=== PATIENT | female | born 1970 | race Caucasian/White ===

== ENCOUNTER 2018-02-14 21:13 | Inpatient (IN) | payer SELFPAY ==
[~2018-02-14] VITALS: Ht 160 cm; Wt 57.3 kg
[2018-02-14] MEDS ORDERED: ASPIRIN 81 MG CHEW TAB PO ONE ×2 (21:30)
[2018-02-14 21:40] LABS: BASOPHILS # (AUTO) 0.1 (0.0-0.1); BASOPHILS % 0.4 % (0.0-1.0); EOSINOPHILS % 0.1 % (0.0-6.0); HEMATOCRIT 43.8 % (34.2-44.1); HEMOGLOBIN 15.1 g/dL (12.0-16.0); LYMPHOCYTES % 4.5 % (18.0-39.1); MEAN CORPUSCULAR HEMOGLOBIN 31.8 pg (28-32); MEAN CORPUSCULAR HGB CONC 34.5 g/dL (31-35); MEAN CORPUSCULAR VOLUME 92.2 fL (81-99); MONOCYTES # (AUTO) 0.4 (0.2-0.8); NEUTROPHILS # (AUTO) 20.3 (2.1-6.9); NEUTROPHILS % 92.3 % (38.7-80.0); PLATELET COUNT 326 x10e3/uL (140-360); RED BLOOD COUNT 4.75 x10e6/uL (3.6-5.1); RED CELL DISTRIBUTION WIDTH 14.6 % (11.7-14.4)
[2018-02-14 21:45] LABS: INR 0.91; PROTHROMBIN TIME 11.5 seconds (11.9-14.5)
[2018-02-14] MEDS ORDERED: LIDOCAINE HCL 2% LOCAL 20 ML VIAL ONE (21:46)
[2018-02-14] MEDS ORDERED: IOPAMIDOL 370 MG/ML 200 ML INFUS..BTL INJ ONE (21:47)
[2018-02-14] MEDS ORDERED: HEPARIN SOD/SOD CHLORIDE 2,000 ML ONE (21:47)
[2018-02-14] MEDS ORDERED: MIDAZOLAM HCL 2 MG/2 ML VIAL ONE (21:50)
[2018-02-14] MEDS ORDERED: NITROGLYCERIN/D5W 200 MCG/ML 0 ML ONE (21:50)
[2018-02-14] MEDS ORDERED: FENTANYL CITRATE/PF 100MCG/2 ML INJ ONE (21:50)
[2018-02-14 21:51] LABS: PARTIAL THROMBOPLASTIN TIME 21.6 seconds (23.8-35.5)
[2018-02-14] MEDS ORDERED: BIVALIRUDIN 250 MG/VIAL IV ONE (21:53)
[2018-02-14] MEDS ORDERED: SODIUM CHLORIDE 0.9% 50ML 50 ML ONE (21:53)
[2018-02-14 21:55] LABS: ALANINE AMINOTRANSFERASE 28 IU/L (0-55); ALBUMIN 4.7 g/dL (3.5-5.0); ALBUMIN/GLOBULIN RATIO 1.1 (0.8-2.0); ALKALINE PHOSPHATASE 67 IU/L (40-150); ANION GAP 19.8 mmol/L (8-16); BLOOD UREA NITROGEN 12 mg/dL (7-26); BUN/CREATININE RATIO 15 (6-25); CARBON DIOXIDE 17 mmol/L (22-29); CHLORIDE 100 mmol/L (98-107); CREATINE KINASE 123 IU/L (29-168); CREATININE, SERUM 0.81 mg/dL (0.57-1.11); EST GLOMERULAR FILTRATION RATE > 60 ML/MIN (60-); GLUCOSE 223 mg/dL (74-118); POTASSIUM 3.8 mmol/L (3.5-5.1); SODIUM 133 mmol/L (136-145)
[2018-02-14] MEDS ORDERED: SODIUM CHLORIDE 0.9% 1000ML 1,000 ML ONE (21:57)
[2018-02-14] MEDS ORDERED: ATROPINE SULFATE 0.1 MG/ML 10ML SYR ONE (22:14)
--- NOTE | 2018-02-14 22:24 | Diagnostic Imaging Report ---
EXAMINATION: CHEST SINGLE (PORTABLE) INDICATION: Chest pain COMPARISON: None FINDINGS: TUBES and LINES: None. LUNGS: Lungs are not well inflated. There are bibasilar atelectasis. View right lung base interlobular septi thickening opacities. There is mild prominence of the central pulmonary vasculature, consistent with pulmonary venous congestion. PLEURA: No pleural effusion or pneumothorax. HEART AND MEDIASTINUM: Cardiac size is mildly enlarged, most likely related to. BONES AND SOFT TISSUES: No acute osseous lesion. Soft tissues are unremarkable. UPPER ABDOMEN: No free air under the diaphragm. IMPRESSION: Central basilar congestion with early findings of pulmonary edema Signed by: Dr. Panda aLm M.D. on 02/14/2018 10:20 PM
[2018-02-14] MEDS ORDERED: NOREPINEPHRINE 8 MG/D5W 250 ML 250 ML ONE (22:26)
[2018-02-14] MEDS ORDERED: ASPIRIN 325 MG TAB ONE (22:39)
[2018-02-14] MEDS ORDERED: CLOPIDOGREL BISULFATE 75 MG TAB ONE (22:39)
[2018-02-14] MEDS ORDERED: EPTIFIBATIDE 10 ML ONE (22:43)
[2018-02-14] MEDS ORDERED: EPTIFIBATIDE 100 ML ONE (22:43)
[2018-02-14 23:26] VITALS: BP 136/89
[2018-02-14 23:29] LABS: CHOL/HDL RATIO 4.9 (3.0-3.6); MAGNESIUM 2.2 MG/DL (1.3-2.1)
[2018-02-14 23:30] VITALS: BP 143/87
[2018-02-14 23:45] VITALS: BP 135/90
[2018-02-14 23:49] LABS: THYROID STIMULATING HORMONE 1.484 uIU/mL (0.350-4.940)
[2018-02-15] VITALS (66 sets, daily range): BP systolic 102–173; BP diastolic 57–108
[2018-02-15] MEDS ORDERED: ATROPINE SULFATE 0.1 MG/ML 10ML SYR ONE (01:32)
--- NOTE | 2018-02-15 04:17 | Operative Report ---
DATE OF PROCEDURE: February 14, 2018 PROCEDURES PERFORMED: 1. Left heart catheterization. 2. Selective coronary angiogram. 3. Stent placement in the right coronary artery. INDICATIONS: Acute inferior wall myocardial infarction. ANESTHESIA: Two percent lidocaine for local anesthesia. BLOOD LOSS: 10 mL. DESCRIPTION OF PROCEDURE: After informed consent, patient was brought to the cardiac catheterization laboratory and placed on the table. Both groins were painted and draped in a sterile fashion. Lidocaine was injected in the right groin for local anesthesia. The right femoral artery was accessed by Seldinger technique and a 6-Dominican sheath was placed in the right femoral artery. The left main artery was cannulated using a JL4, 5-Dominican catheter. Coronary angiogram was performed. The images were obtained in multiple views. The right coronary artery was cannulated using a 3DRC 5-Dominican catheter. Coronary angiogram was performed. The images were obtained. Reviewing the images, it was decided to intervene on the 95% mid RCA and 100% distal RCA lesion. The left main was cannulated using an AL75, 6-Dominican guide. A Runthrough wire was manipulated and placed in the distal right coronary artery. A 2.5 x 8 mm Emerge balloon was advanced over the wire and the distal 100% lesion was dilated at 8 to 10 atmospheres for about 15 seconds. Multiple dilatations were performed. Subsequently, the same balloon was pulled back and the mid RCA lesion was dilated at 10 atmospheres for about 15 to 20 seconds. Multiple dilatations were performed sequentially on the long lesion. There was a non-flow limiting dissection in the mid RCA. Subsequently, a 2.75 x 32 mm Synergy drug-eluting stent was deployed across the mid lesion at 12 atmospheres for about 20 seconds. The Runthrough wire was initially placed in the posterior descending artery. Initially, plan was to double wire the posterolateral branch and the posterior descending artery. However, the Prowater wire would get struck in the struts. So, the wire was removed and the same Runthrough wire was manipulated and placed in the distal posterolateral branch. The posterolateral branch had lesions in its proximal and distal segments. Distally, it would taper off into a very narrow vessel. Subsequently, a 2.5 x 20 mm Synergy drug-eluting stent was deployed across the distal RCA and posterolateral branch. It was deployed at 11 atmospheres for about 20 seconds. This was performed under constant fluoroscopy guidance. Excellent results were obtained and TAMRA-3 flow was noted. Patient was given aspirin, Plavix, Angiomax and Integrilin during the procedure. Patient tolerated the procedure without any complications. REPORT: LEFT MAIN: Normal caliber with luminal irregularities. LEFT ANTERIOR DESCENDING: Normal caliber with 20% proximal lesion followed by another 20% proximal to mid lesion. LEFT CIRCUMFLEX: Normal caliber and 60% to 70% mid lesion. RIGHT CORONARY ARTERY: Is a dominant vessel, has a wall 95% mid lesion and is totally occluded in its distal segment. Following intervention, distally the right coronary artery branches and tapers off into less than a millimeter-sized vessel and has diffuse disease. The distal posterior descending artery also tapers off into less than a millimeter vessel and has diffuse disease. There was TAMRA-3 and 0% residual stenosis at the mid lesion, less than 10% residual stenosis in the distal lesion. We will continue with dual antiplatelet agents, statins, beta blockers. The patient has also been counseled on tobacco cessation. Job#: [id number]
--- NOTE | 2018-02-15 06:24 | Diagnostic Imaging Report ---
EXAMINATION: CHEST SINGLE (PORTABLE) INDICATION: ST elevation [place] COMPARISON: 02/14/2018 FINDINGS: TUBES and LINES: None. LUNGS: Lungs are not well inflated. Lungs are clear. There is mild prominence of the central pulmonary vasculature, consistent with pulmonary venous congestion. PLEURA: No pleural effusion or pneumothorax. HEART AND MEDIASTINUM: The cardiomediastinal silhouette is unremarkable. BONES AND SOFT TISSUES: No acute osseous lesion. Soft tissues are unremarkable. UPPER ABDOMEN: No free air under the diaphragm. IMPRESSION: No acute thoracic abnormality. Signed by: Dr. Panda Lam M.D. on 02/15/2018 6:20 AM
[2018-02-15 06:29] LABS: BASOPHILS % 0.2 % (0.0-1.0); HEMATOCRIT 35.6 % (34.2-44.1); HEMOGLOBIN 12.4 g/dL (12.0-16.0); LYMPHOCYTES # (AUTO) 0.9 (1.0-3.2); LYMPHOCYTES % 4.9 % (18.0-39.1); MEAN CORPUSCULAR HEMOGLOBIN 31.8 pg (28-32); MEAN CORPUSCULAR HGB CONC 34.8 g/dL (31-35); MEAN CORPUSCULAR VOLUME 91.3 fL (81-99); MONOCYTES # (AUTO) 0.9 (0.2-0.8); MONOCYTES % 4.9 % (4.4-11.3); NEUTROPHILS # (AUTO) 16.8 (2.1-6.9); NEUTROPHILS % 89.6 % (38.7-80.0); PLATELET COUNT 332 x10e3/uL (140-360); RED CELL DISTRIBUTION WIDTH 14.3 % (11.7-14.4)
[2018-02-15 06:48] LABS: ALANINE AMINOTRANSFERASE 90 IU/L (0-55); ALBUMIN 3.5 g/dL (3.5-5.0); ALBUMIN/GLOBULIN RATIO 1.3 (0.8-2.0); ALKALINE PHOSPHATASE 47 IU/L (40-150); ANION GAP 12.9 mmol/L (8-16); BLOOD UREA NITROGEN 10 mg/dL (7-26); BUN/CREATININE RATIO 17 (6-25); CALCIUM 8.4 mg/dL (8.4-10.2); CARBON DIOXIDE 19 mmol/L (22-29); CHLORIDE 106 mmol/L (98-107); CREATININE, SERUM 0.59 mg/dL (0.57-1.11); EST GLOMERULAR FILTRATION RATE > 60 ML/MIN (60-); GLUCOSE 163 mg/dL (74-118); POTASSIUM 3.9 mmol/L (3.5-5.1); SODIUM 134 mmol/L (136-145)
[2018-02-15 07:00] LABS: CHOL/HDL RATIO 4.7 (3.0-3.6)
[2018-02-15] MEDS: ASPIRIN 325 MG TAB PO SCH (07:49)
[2018-02-15] MEDS: ATORVASTATIN 20 MG TAB PO SCH (07:53)
[2018-02-15] MEDS: CLOPIDOGREL BISULFATE 75 MG TAB PO SCH (07:53)
[2018-02-15] MEDS ORDERED: METFORMIN HCL500 MG PO (07:54)
[2018-02-15] MEDS ORDERED: LOSARTAN POTAS100 MG PO (07:54)
[2018-02-15 08:10] LABS: CREATINE KINASE MB 519.4 ng/mL (0-5.0)
[2018-02-15] MEDS: METOPROLOL TARTRATE 25 MG TAB PO SCH ×3 (09:00→17:00)
[2018-02-15 09:31] LABS: B-TYPE NATRIURETIC PEPTIDE2 135.1 pg/mL (0-100)
[2018-02-15] MEDS ORDERED: DEXTROSE 50% SYRINGE 50 ML IV PRN (11:15)
[2018-02-15] MEDS ORDERED: MORPHINE SULFATE 2 MG/ML SYR IV PRN (11:15)
[2018-02-15] MEDS ORDERED: NITROGLYCERIN 2% OINT 1 GM PKT ONE (11:53)
[2018-02-15] MEDS: NITROGLYCERIN 2% OINT 1 GM PKT TOP SCH ×3 (11:55→23:41)
[2018-02-15] MEDS: INSULIN LISPRO 100 UNIT/1 ML 3ML VIAL SQ SCH ×3 (12:04→20:52)
--- NOTE | 2018-02-15 15:03 | Consultation ---
DATE OF CONSULTATION: February 14, 2018 REQUESTING PHYSICIAN: Dr. Harden. REASON FOR CONSULTATION: Inferior wall myocardial infarction. HISTORY OF PRESENT ILLNESS: Ms. Zhang is a 48-year-old lady with past medical history as listed below, reportedly started developing chest pain at about 5 p.m. this evening. She thought it would go away, but continued to persist, was retrosternal, nonradiating, was a little short of breath, a pressure-like pain. It continued to persist and so she decided to come to the emergency room. On her EKG, patient was noted to have ST elevation in the inferior leads, so is called about an inferior wall NC. Patient states that she had a mild heart attack several years back. Apparently underwent a cardiac catheterization and was told all was okay. She denies any abdominal pain, vomiting or diarrhea. No bleeding problems. She smokes on a daily basis. Her father apparently had NC in his 40s. REVIEW OF SYMPTOMS: CONSTITUTIONAL: Has some fatigue and weakness. HEENT: No headache, blurry vision, seizures, syncope. CARDIOVASCULAR: Chest pain. Some dyspnea. No orthopnea or PND. RESPIRATORY: No cough, fever or expectoration. GI: No abdominal pain, vomiting, diarrhea. : No dysuria, frequency, incontinence. ALLERGIES: NO KNOWN DRUG ALLERGIES. MEDICATIONS: See list. PAST MEDICAL HISTORY: 1. History of hypertension. 2. History of diabetes mellitus. SOCIAL HISTORY: Patient smokes a pack a day. Patient apparently has been smoking for more than 30 years. Does not drink alcohol. FAMILY HISTORY: Father had NC in his 40s. PHYSICAL EXAMINATION: GENERAL: A small built lady, alert, oriented. Appears a little anxious. VITALS: Heart rate is 78, blood pressure 147/74. HEENT: Atraumatic. NECK: No JVD, bruit, thyromegaly, lymphadenopathy. CARDIOVASCULAR: First and 2nd heart sounds heard. A 2/6 systolic murmur heard at the left sternal border. CHEST: Decreased air entry at the bases. No adventitious sounds appreciated. ABDOMEN: Soft, nontender. EXTREMITIES: No edema. LABORATORY DATA: EKG shows sinus rhythm, 76 beats per minute; normal axis; normal intervals; [address] elevation in 2, 3, aVF; [address] depression I, aVL, V1 and V2. Other labs are pending. IMPRESSION: 1. Acute inferior wall myocardial infarction. 2. History of hypertension. 3. History of diabetes mellitus. 4. Tobacco use. 5. Family history of coronary artery disease. PLAN: 1. Due to acute inferior wall myocardial infarction, discussing with the patient, it was decided to take the patient to the rn cardiac cath for cardiac catheterization and possible PCI. She has been explained of the procedure, risks, benefits, complications, alternatives. She understands and agrees to it. At the time of dictation, patient is in the ER and the rn cardiac cath has gone to pick her up. 2. Will treat her with appropriate medications including aspirin. Start beta blockers, anticoagulants, etc., as indicated. 3. Will get an echocardiogram to assess LV function and valvular function. As always, I appreciate and thank you very much for your referrals. Job#: [id number] JOHNY
[2018-02-15 15:11] LABS: CREATINE KINASE MB 366.4 ng/mL (0-5.0)
[2018-02-15] MEDS: FAMOTIDINE 20 MG/2 ML VIAL IV SCH (16:49)
[2018-02-15 23:13] LABS: CREATINE KINASE MB 186.9 ng/mL (0-5.0)
[2018-02-16] VITALS (21 sets, daily range): BP systolic 74–134; BP diastolic 55–81
[2018-02-16 03:46] LABS: BASOPHILS # (AUTO) 0.1 (0.0-0.1); BASOPHILS % 0.5 % (0.0-1.0); EOSINOPHILS # (AUTO) 0.1 (0.0-0.4); EOSINOPHILS % 0.6 % (0.0-6.0); HEMATOCRIT 32.8 % (34.2-44.1); HEMOGLOBIN 11.4 g/dL (12.0-16.0); LYMPHOCYTES % 10.5 % (18.0-39.1); MEAN CORPUSCULAR HEMOGLOBIN 31.8 pg (28-32); MEAN CORPUSCULAR HGB CONC 34.8 g/dL (31-35); MEAN CORPUSCULAR VOLUME 91.4 fL (81-99); MONOCYTES # (AUTO) 1.1 (0.2-0.8); MONOCYTES % 11.5 % (4.4-11.3); NEUTROPHILS # (AUTO) 7.2 (2.1-6.9); NEUTROPHILS % 76.5 % (38.7-80.0); PLATELET COUNT 260 x10e3/uL (140-360); RED BLOOD COUNT 3.59 x10e6/uL (3.6-5.1); RED CELL DISTRIBUTION WIDTH 14.1 % (11.7-14.4)
[2018-02-16 04:03] LABS: ALANINE AMINOTRANSFERASE 98 IU/L (0-55); ALBUMIN 3.2 g/dL (3.5-5.0); ALKALINE PHOSPHATASE 46 IU/L (40-150); ANION GAP 12.5 mmol/L (8-16); BILIRUBIN,DIRECT 0.2 mg/dL (0.0-0.5); BLOOD UREA NITROGEN 6 mg/dL (7-26); BUN/CREATININE RATIO 10 (6-25); CALCIUM 8.6 mg/dL (8.4-10.2); CARBON DIOXIDE 23 mmol/L (22-29); CHLORIDE 104 mmol/L (98-107); CREATININE, SERUM 0.59 mg/dL (0.57-1.11); EST GLOMERULAR FILTRATION RATE > 60 ML/MIN (60-); GLUCOSE 124 mg/dL (74-118); MAGNESIUM 1.9 MG/DL (1.3-2.1); POTASSIUM 3.5 mmol/L (3.5-5.1); SODIUM 136 mmol/L (136-145)
[2018-02-16] MEDS: FAMOTIDINE 20 MG/2 ML VIAL IV SCH ×2 (05:11→16:25)
[2018-02-16] MEDS: NITROGLYCERIN 2% OINT 1 GM PKT TOP SCH ×4 (05:13→23:30)
[2018-02-16] MEDS: INSULIN LISPRO 100 UNIT/1 ML 3ML VIAL SQ SCH ×5 (07:28→20:31)
[2018-02-16] MEDS: ASPIRIN 325 MG TAB PO SCH (08:10)
[2018-02-16] MEDS: CLOPIDOGREL BISULFATE 75 MG TAB PO SCH (08:10)
[2018-02-16] MEDS: METOPROLOL TARTRATE 25 MG TAB PO SCH ×2 (08:10→16:06)
[2018-02-16 08:36] LABS: CREATINE KINASE MB 113.8 ng/mL (0-5.0)
[2018-02-16] MEDS: LISINOPRIL 10 MG TAB PO SCH (09:00)
[2018-02-16] MEDS: SODIUM CHLORIDE 0.9% 1000ML 1,000 ML IV SCH ×2 (11:13→23:38)
[2018-02-16] MEDS ORDERED: POTASSIUM CHLORIDE 10 MEQ TABCR PO ONE (11:15)
--- NOTE | 2018-02-16 12:51 | Diagnostic Imaging Report ---
EXAMINATION: CT angiogram of the neck CLINICAL HISTORY: Evaluate carotid artery stenoses COMPARISON STUDIES: Carotid Doppler ultrasound on 02/15/2018 TECHNIQUE: Axial images were obtained from the thoracic inlet. Coronal and sagittal images reconstructed from the axial data. Intravenous contrast: 100 mL of Omnipaque 300. FINDINGS: If present, stenosis of the carotid bulbs is measured based on NASCET criteria i.e area of maximum stenosis compared to the cervical ICA distal to the bulb. Aortic arch and major vessels: Patent. No abnormalities. Common carotid arteries: Right: Patent. No abnormalities. Left :Patent. No abnormalities. Carotid bulbs: Right: Minimal soft and calcified plaque without associated stenoses (0%). Left : Mostly soft an perhaps partially ulcerated atherosclerotic plaque in the left carotid bifurcation and left carotid bulb, with moderate stenosis (50-69%). Internal carotid arteries: Right: Patent. No abnormalities. Left: Patent. No abnormalities. Vertebral arteries: Patent. No abnormalities. IMPRESSION: Moderate stenosis of the left carotid bulb (50-69%), otherwise no major vessel occlusion or hemodynamically significant stenoses of the carotid or vertebral arteries in the neck. Signed by: Dr. Moni Kelsey M.D. on 02/16/2018 12:48 PM
[2018-02-16] MEDS ORDERED: IOPAMIDOL 370 MG/ML 200 ML INFUS..BTL INJ ONE (16:15)
[2018-02-16] MEDS ORDERED: SODIUM CHLORIDE 0.9% 50ML 50 ML ONE (16:15)
[2018-02-16] MEDS: ATORVASTATIN 20 MG TAB PO SCH (20:44)
[2018-02-17 03:32] LABS: BASOPHILS # (AUTO) 0.1 (0.0-0.1); BASOPHILS % 0.8 % (0.0-1.0); EOSINOPHILS # (AUTO) 0.1 (0.0-0.4); HEMATOCRIT 30.1 % (34.2-44.1); HEMOGLOBIN 10.4 g/dL (12.0-16.0); LYMPHOCYTES # (AUTO) 1.2 (1.0-3.2); MEAN CORPUSCULAR HEMOGLOBIN 32.1 pg (28-32); MEAN CORPUSCULAR HGB CONC 34.6 g/dL (31-35); MEAN CORPUSCULAR VOLUME 92.9 fL (81-99); MONOCYTES # (AUTO) 0.8 (0.2-0.8); MONOCYTES % 11.7 % (4.4-11.3); NEUTROPHILS # (AUTO) 4.3 (2.1-6.9); NEUTROPHILS % 66.2 % (38.7-80.0); PLATELET COUNT 219 x10e3/uL (140-360); RED BLOOD COUNT 3.24 x10e6/uL (3.6-5.1); RED CELL DISTRIBUTION WIDTH 14.2 % (11.7-14.4)
[2018-02-17 04:00] LABS: ANION GAP 11.1 mmol/L (8-16); BLOOD UREA NITROGEN 10 mg/dL (7-26); BUN/CREATININE RATIO 18 (6-25); CALCIUM 8.2 mg/dL (8.4-10.2); CARBON DIOXIDE 23 mmol/L (22-29); CHLORIDE 110 mmol/L (98-107); CREATINE KINASE 573 IU/L (29-168); CREATININE, SERUM 0.57 mg/dL (0.57-1.11); EST GLOMERULAR FILTRATION RATE > 60 ML/MIN (60-); GLUCOSE 117 mg/dL (74-118); POTASSIUM 4.1 mmol/L (3.5-5.1); SODIUM 140 mmol/L (136-145)
[2018-02-17 05:23] VITALS: BP 93/50
[2018-02-17] MEDS: FAMOTIDINE 20 MG/2 ML VIAL IV SCH (05:30)
[2018-02-17 06:00] VITALS: BP 119/63
[2018-02-17] MEDS: NITROGLYCERIN 2% OINT 1 GM PKT TOP SCH (06:00)
[2018-02-17 06:49] LABS: COLOR,URINE YELLOW (YELLOW)
[2018-02-17 06:50] LABS: BILIRUBIN,URINE NEGATIVE (NEGATIVE); CLARITY,URINE SL CLOUDY (CLEAR); KETONES,URINE NEGATIVE (NEGATIVE); LEUKOCYTE ESTERASE ,URINE NEGATIVE (NEGATIVE); NITRITE,URINE NEGATIVE (NEGATIVE); PROTEIN,URINE DIPSTICK NEGATIVE (NEGATIVE); URINE UROBILINOGEN 0.2 mg/dL (0.2 - 1)
[2018-02-17 06:53] LABS: BACTERIA,URINE RARE /HPF; EPITHELIAL CELLS,URINE FEW /LPF; RBC,URINE 21-50 /HPF (0-5)
[2018-02-17] MEDS ORDERED: LOPRESSOR25 MG PO (07:26)
[2018-02-17] MEDS ORDERED: PLAVIX75 MG PO (07:26)
[2018-02-17] MEDS ORDERED: LIPITOR20 MG PO (07:26)
[2018-02-17] MEDS ORDERED: ASPIRIN325 MG PO (07:26)
[2018-02-17] MEDS: INSULIN LISPRO 100 UNIT/1 ML 3ML VIAL SQ SCH (07:30)
[2018-02-17] MEDS: METOPROLOL TARTRATE 25 MG TAB PO SCH (07:49)
[2018-02-17] MEDS: ASPIRIN 325 MG TAB PO SCH (07:55)
[2018-02-17] MEDS: CLOPIDOGREL BISULFATE 75 MG TAB PO SCH (07:55)
[2018-02-17] MEDS: LISINOPRIL 10 MG TAB PO SCH (07:56)
[2018-02-17 08:16] VITALS: BP 123/70
[2018-02-17] MEDS ORDERED: NITROGLYCERIN0.4 MG SL (09:08)
[2018-02-17] MEDS ORDERED: FAMOTIDINE 20 MG TAB PO SCH (16:30)
[2018-02-17] MEDS ORDERED: ATORVASTATIN 40 MG TAB PO SCH (21:00)
== END 2018-02-17 09:49 | disposition home or self-care (01) | DRG 247 ==
LOC: ER 21:13 → CATH LAB 21:46 → ERHOLD 21:57 → ICU 23:21 → MED/SURG 02-16 09:36
PROVIDERS: ADMIT Internal Medicine; ATTEND Internal Medicine
PROC: 027035Z Dilation of Coronary Artery, One Artery with Two Drug-eluting Intraluminal Devices, Percutaneous Approach (ICD-10-PCS; principal; 2018-02-14)
PROC: 4A023N7 Measurement of Cardiac Sampling and Pressure, Left Heart, Percutaneous Approach (ICD-10-PCS; 2018-02-14)
PROC: B2111ZZ Fluoroscopy of Multiple Coronary Arteries using Low Osmolar Contrast (ICD-10-PCS; 2018-02-14)
PROC: B2151ZZ Fluoroscopy of Left Heart using Low Osmolar Contrast (ICD-10-PCS; 2018-02-14)
DX: I21.19 ST elevation (STEMI) myocardial infarction involving other coronary artery of inferior wall (principal); E11.9 Type 2 diabetes mellitus without complications; E78.5 Hyperlipidemia, unspecified; I25.10 Atherosclerotic heart disease of native coronary artery without angina pectoris; I10 Essential (primary) hypertension; Z72.0 Tobacco use; Z82.49 Family history of ischemic heart disease and other diseases of the circulatory system; D64.9 Anemia, unspecified
CPT/HCPCS: 36415; 70498; 71045; 80048; 80053; 80061; 80076; 81001; 82550; 82553; 82948; 83036; 83735; 83880; 84443; 84484; 85025; 85347; 85610; 85730; 87086; 92920; 93005; 93306; 93454; 93880; 96372; 97139; 99284; C1874; C9606; J0583; J1327; J2001; J2250; J2270; J7030; Q9967

== ENCOUNTER 2018-04-15 05:29 | Inpatient (IN) | payer SELFPAY ==
[2018-04-15] VITALS (30 sets, daily range): BP systolic 129–169; BP diastolic 77–103
[~2018-04-15] VITALS: Ht 160 cm; Wt 59.0 kg
[~2018-04-15 05:29] MED LIST: ASPIRIN325 MG PO; LIPITOR20 MG PO; LOPRESSOR25 MG PO; LOSARTAN POTAS100 MG PO; METFORMIN HCL500 MG PO; NITROGLYCERIN0.4 MG SL; PLAVIX75 MG PO
[2018-04-15] MEDS ORDERED: CLOPIDOGREL BISULFATE 75 MG TAB PO ONE (05:45)
[2018-04-15] MEDS ORDERED: EPTIFIBATIDE 2 MG/1 ML 10ML VIAL IV ONE (05:45)
[2018-04-15] MEDS ORDERED: ASPIRIN 81 MG CHEW TAB PO ONE (05:45)
[2018-04-15] MEDS ORDERED: EPTIFIBATIDE 10 ML ONE ×2 (05:46→06:47)
[2018-04-15] MEDS ORDERED: ONDANSETRON HCL INJ 2 MG/ML VIAL IV PRN ×2 (06:00→08:15)
[2018-04-15] MEDS ORDERED: ONDANSETRON HCL INJ 2 MG/ML VIAL IV STA (06:02)
[2018-04-15] MEDS ORDERED: MORPHINE SULFATE 2 MG/ML SYR IV STA (06:02)
[2018-04-15 06:18] LABS: BASOPHILS # (AUTO) 0.1 (0.0-0.1); BASOPHILS % 0.6 % (0.0-1.0); EOSINOPHILS # (AUTO) 0.1 (0.0-0.4); EOSINOPHILS % 0.9 % (0.0-6.0); HEMATOCRIT 40.1 % (34.2-44.1); HEMOGLOBIN 13.3 g/dL (12.0-16.0); LYMPHOCYTES # (AUTO) 2.1 (1.0-3.2); LYMPHOCYTES % 13.1 % (18.0-39.1); MEAN CORPUSCULAR HGB CONC 33.2 g/dL (31-35); MEAN CORPUSCULAR VOLUME 90.5 fL (81-99); MONOCYTES # (AUTO) 0.8 (0.2-0.8); MONOCYTES % 5.2 % (4.4-11.3); NEUTROPHILS # (AUTO) 12.8 (2.1-6.9); NEUTROPHILS % 79.8 % (38.7-80.0); PLATELET COUNT 353 x10e3/uL (140-360); RED BLOOD COUNT 4.43 x10e6/uL (3.6-5.1); RED CELL DISTRIBUTION WIDTH 14.5 % (11.7-14.4)
--- NOTE | 2018-04-15 06:21 | Diagnostic Imaging Report ---
EXAM: CHEST SINGLE (PORTABLE), AP 1 view INDICATION: Substernal chest pain COMPARISON: AP view of the chest February 15, 2018 FINDINGS: LINES/TUBES: None LUNGS: No consolidations or edema. PLEURA: No effusions or pneumothorax. HEART AND MEDIASTINUM: Mild cardiac enlargement. BONES AND SOFT TISSUES: No acute findings. IMPRESSION: Mild cardiac enlargement. No evidence of pulmonary edema. Signed by: Dr. Theresa Mahmood M.D. on 04/15/2018 6:18 AM
[2018-04-15 06:23] LABS: INR 1.14; PARTIAL THROMBOPLASTIN TIME 25.1 seconds (23.8-35.5); PROTHROMBIN TIME 13.7 seconds (11.9-14.5)
[2018-04-15] MEDS ORDERED: LIDOCAINE HCL 2% LOCAL 20 ML VIAL ONE (06:27)
[2018-04-15] MEDS ORDERED: FENTANYL CITRATE/PF 100MCG/2 ML INJ ONE (06:27)
[2018-04-15] MEDS ORDERED: MIDAZOLAM HCL 2 MG/2 ML VIAL ONE (06:27)
[2018-04-15] MEDS ORDERED: HEPARIN SOD (PORCINE) 1000 UNIT/ML 30ML ONE (06:27)
[2018-04-15] MEDS ORDERED: HEPARIN SOD/SOD CHLORIDE 2,000 ML ONE (06:28)
[2018-04-15] MEDS ORDERED: NITROGLYCERIN/D5W 200 MCG/ML 250 ML ONE (06:28)
[2018-04-15] MEDS ORDERED: SODIUM CHLORIDE 0.9% 1000ML 1,000 ML ONE (06:28)
[2018-04-15] MEDS ORDERED: IOPAMIDOL 370 MG/ML 200 ML INFUS..BTL INJ ONE ×2 (06:29→07:06)
[2018-04-15 06:30] LABS: ALANINE AMINOTRANSFERASE 19 IU/L (0-55); ALBUMIN 3.8 g/dL (3.5-5.0); ALBUMIN/GLOBULIN RATIO 1.2 (0.8-2.0); ALKALINE PHOSPHATASE 49 IU/L (40-150); ANION GAP 16.7 mmol/L (8-16); BLOOD UREA NITROGEN 9 mg/dL (7-26); BUN/CREATININE RATIO 11 (6-25); CALCIUM 9.4 mg/dL (8.4-10.2); CARBON DIOXIDE 18 mmol/L (22-29); CHLORIDE 108 mmol/L (98-107); CREATINE KINASE 50 IU/L (29-168); EST GLOMERULAR FILTRATION RATE > 60 ML/MIN (60-); GLUCOSE 186 mg/dL (74-118); POTASSIUM 3.7 mmol/L (3.5-5.1); SODIUM 139 mmol/L (136-145)
[2018-04-15] MEDS ORDERED: BIVALIRUDIN 250 MG/VIAL IV ONE (06:41)
[2018-04-15] MEDS ORDERED: ATROPINE SULFATE 0.1 MG/ML 10ML SYR ONE (06:41)
[2018-04-15] MEDS ORDERED: SODIUM CHLORIDE 0.9% 50ML 50 ML ONE (06:41)
[2018-04-15] MEDS ORDERED: EPTIFIBATIDE 100 ML ONE ×2 (06:47→16:41)
[2018-04-15] MEDS ORDERED: DIPHENHYDRAMINE HCL INJ 50 MG/ML VIAL ONE (07:01)
[2018-04-15] MEDS ORDERED: HYDROCODONE/APAP 5MG-325MG TAB PO PRN (08:15)
[2018-04-15] MEDS ORDERED: ACETAMINOPHEN 325 MG TAB PO PRN (08:15)
[2018-04-15] MEDS ORDERED: EPTIFIBATIDE IV SCH (08:15)
[2018-04-15] MEDS ORDERED: FUROSEMIDE INJ 10 MG/ML 4 ML VIAL IV ONE (08:15)
[2018-04-15] MEDS ORDERED: SODIUM CHLORIDE 0.9% IV SCH (08:15)
[2018-04-15] MEDS ORDERED: ASPIRIN 81 MG ENTERIC COATED PO SCH (09:00)
[2018-04-15] MEDS ORDERED: CLOPIDOGREL BISULFATE 75 MG TAB PO SCH ×2 (09:00)
[2018-04-15] MEDS: SODIUM CHLORIDE 0.9% IV SCH ×2 (09:03→18:01)
[2018-04-15] MEDS: DEXTROSE 5%/0.45% SOD CHL 1,000 ML IV SCH (09:03)
[2018-04-15] MEDS: EPTIFIBATIDE IV SCH ×2 (09:03→18:01)
--- NOTE | 2018-04-15 09:15 | Operative Report ---
DATE OF PROCEDURE: April 15, 2018 PROCEDURES PERFORMED: 1. Left heart cardiac catheterization with coronary angiography. 2. Left ventriculography. 3. Aspiration thrombectomy, followed by percutaneous coronary intervention of the distal right coronary artery with stent extension into the right posterior descending artery. 4. Vascade closure of the right common femoral arteriotomy. INDICATIONS FOR PROCEDURE: [id number] lady with past medical history of hypertension, recently diagnosed type 2 diabetes, hypercholesterolemia, COPD, recently quit smoking several weeks ago, who had presentation on February 14, [address] with acute inferior wall ST elevation myocardial infarction and had [address] Hahn with 2 Synergy drug-eluting stents, 2.75 x 32 in the prox-mid aspect as well as a 2.5 x 20 mm distally. Patient awoke from sleep with severe onset of shortness of breath, substernal chest pressure, tightness, heaviness similar to the previously presenting symptom complex about a month ago. Patient maintains compliance with her antiplatelet regimen, however, is with acute inferior wall ST elevation myocardial infarction and acute systolic heart failure symptoms, [place] [employer] 4. This is an emergent procedure with emergent seed laboratory assistant activation. DESCRIPTION OF PROCEDURE: After risks, benefits, pros, and cons of today's procedure were appropriately explained to the patient, patient agreed to proceed. The patient was brought to cardiac catheterization laboratory where the right groin was prepped and draped in usual sterile fashion. 1% lidocaine solution was used in right groin region. Access to the right femoral artery was obtained, and a 6-Bahraini femoral sheath was placed. We initially went up with a 6-Bahraini 3DRC diagnostic catheter, which revealed 100% thrombotic occlusion into distal RCA stent. At that time, we decided to proceed with intervention. IV Angiomax boluses as well as Integrilin boluses and drip were given. We went up with a 6-Bahraini 3DRC guiding catheter and selected the right coronary artery. We took 180 cm Prowater Flex across into the right PDA and performed 3 aspiration thrombectomy runs with a Pronto LP catheter establishing flow in the vessel going from TAMRA-0 to TAMRA-2. At that point in time, we elected to predilate the lesion with a 2.0 x 12 mm Emerge balloon up to 10 atmospheres of pressure. At that point in time, it seemed that the distal stent edge of the previously placed stent might have been under deployed or had significant recoil and we decided to reinforce that area and extend our stenting into the right PDA proper. We went in with the Resolute [place] 2.5 x 12 mm stent, however, we did not have good guide support. At that point in time, we took a 6-Bahraini GuideLiner guide extension and was able to easily place the stent starting at the distal edge of the previously placed stent and ending up into the right PDA jailing the right PLV branch. This stent was dilated up to 12 atmospheres of pressure. At that point in time, we pulled the stent and balloon back and hit the overlap segment up to 15 atmospheres of pressure and did another 15 atmospheres of pressure hitting the proximal aspect of the previously placed stent. Final angiography revealed 0% residual stenosis, TAMRA-3 flow, and no complications. At that point in time, we performed left coronary angiography, which revealed small LAD system with just mild diffuse disease as well as circumflex artery, which essentially is a mid-marginal branch with a 70% mid stenosis. Left ventricular ejection fraction is about 20% to 25% with end-diastolic pressure of 36 mmHg with severe inferior wall hypokinesis. At that point in time, we did a femoral angiogram revealing femoral artery stick, and a 6-Bahraini Vascade closure device was successfully deployed achieving hemostasis. COMPLICATIONS: None. ESTIMATED BLOOD LOSS: Minimal. FINDINGS: 1. Left main is angiographically normal and gives rise to an LAD and circumflex branch. 2. The LAD is diffusely diseased, has essentially a bifid system with a first diagonal branch supplying the lateral wall and the LAD proper rapidly tapers. 3. The left circumflex artery essentially is a mid-marginal branch, which has 70% mid stenosis. 4. The RCA has a long prox-mid RCA stent that is widely patent. The distal RCA stent appears 100% thrombotically occluded with crimping of the distal stent edge under deployment. There is TAMRA-0 flow and is 100% occluded at that point in time. 5. Left ventricular ejection fraction is 20% to 25% with severe inferior wall hypokinesis. INTERVENTION SUMMARY: Successful treatment of the 100% distal RCA occlusion with aspiration thrombectomy, followed by implantation of a Resolute Big Sky 2.25 x 12 mm drug-eluting stent extending the distal edge of the stent into the right PDA jailing the right PLV. This area was aggressively postdilated and there was noteworthy some residual debris in the distal right PDA branch, which is 1 to 1.5 mm vessel at that point, which we will treat with pharmacotherapy with Integrilin infusion. Final angiography revealed 0% residual stenosis, TAMRA-3 flow, and there are no complications. PLAN/RECOMMENDATIONS: 1. ICU admission for further care and management. 2. Integrilin infusion for 24 hours. 3. Will go ahead and give liberty and call Dr. Hahn who has previously cared for her. 4. Further plan/recommendations to follow. Job#: [id number]
--- NOTE | 2018-04-15 11:13 | Consultation ---
DATE OF CONSULTATION: April 15, 2018 PULMONARY CONSULTATION REASON FOR CONSULTATION: Shortness of breath. HPI: Ms. Zhang is a 48-year-old female. She presented to the emergency room with chest pain. The patient was taken to the label coder, and the patient underwent left heart catheterization with coronary angiography, aspiration thrombectomy, followed by PCI of the distal right coronary artery with stent extension to the right posterior descending artery. Postoperatively, she is in the ICU and she had desaturation, so pulmonary consultation was called. Patient is now on 2 liters nasal cannula with 96% oxygen saturation. She is a smoker. She smoked 1 pack per day for 15 years. She quit 9 weeks ago. She denies any current chest pain. Initially, she presented with severe, crushing chest pain. Denies any nausea, vomiting or shortness of breath. REVIEW OF SYSTEMS GENERAL: Denies any fever or chills. HEAD: Denies any head trauma. ENT: Denies any earache. CVS: Denies any chest pain. RESPIRATORY: Denies any shortness of breath. OTHER: The rest of the review systems are negative except as in HPI. PAST MEDICAL HISTORY: Hypertension, diabetes, hyperlipidemia. PAST SURGICAL HISTORY: None. FAMILY AND SOCIAL HISTORY: She smoked a pack a day for 15 years. Does not drink. PHYSICAL EXAMINATION VITAL SIGNS: Temperature 98.5, pulse of 60, blood pressure 152/92, respiratory rate 18. HEENT: Head is atraumatic, normocephalic. NECK: Supple. No JVD. Thyroid is not enlarged. CHEST: Clear to auscultation bilaterally. HEART: S1 and S2 audible. ABDOMEN: Soft, nontender and nondistended. EXTREMITIES: No clubbing, cyanosis or edema. NEUROLOGIC: Awake, alert. No focal neurologic deficit. LABS: White count 16,000, hemoglobin 13.3, platelets 353. Chemistry is within normal limits. Chest x-ray was done yesterday and is showing no evidence of pulmonary edema and no cardiac enlargement. ASSESSMENT: Acute 48-year-old female with chest pain, diagnosed with acute coronary syndrome, status post percutaneous coronary intervention. Episode of hypoxia when she came back from the label coder likely due to sedation. Currently on 2 liters and saturating 96%. PLAN: I will continue the patient on O2 at 2 liters, and hopefully when she is more awake, will remove the oxygen. Not hypoxic at this point. If there is another episode, may need ABG and further evaluation. Thank you for this consult. Job#: [id number]
--- NOTE | 2018-04-15 13:27 | Consultation ---
REQUESTING PHYSICIAN: Dr. Garcia/Dr. Renee. HISTORY OF PRESENTING ILLNESS: Ms. Zhang is a 48-year-old lady with past medical history as listed below, presented with complaints of chest pain. Patient states that she was doing fine and exercising on a regular basis twice daily on a treadmill. Recently, she developed cold in the last 2 to 3 days. Patient developed chest pain this morning and decided to come to the hospital. Patient was noted to have ST elevation in inferior leads. She was taken to the cardiac laboratory assistant. She was noted to have thrombotic occlusion of stent in RCA. She underwent thrombectomy and stent placement by Dr. Alta Renee and she tolerated to the procedure well. Patient also states that she has been having alternating vomiting and diarrhea for the last few days, claims to be taking her medications despite stomach upset and states that medications caused discomfort in her stomach. Patient reportedly had transient hypoxia during cath. REVIEW OF SYMPTOMS CONSTITUTIONAL: Has fatigue and weakness. HEENT: No headache, blurring of vision, seizures, or syncope. CARDIOVASCULAR: Has chest pain, dyspnea, orthopnea, and PND. RESPIRATORY: No cough, fever, expectoration. GI: Has some abdominal discomfort, especially when she takes her medications. Apparently, has been having some vomiting and diarrhea off and on. : No dysuria, frequency, or incontinence. ALLERGIES: NO KNOWN DRUG ALLERGIES. MEDICATIONS: See list. PAST MEDICAL HISTORY 1. History of CAD and a stent to the RCA few months back. 2. History of hypertension. 3. History of diabetes mellitus. 4. History of MN in the past. SOCIAL HISTORY: Used to smoke, quit in February of this year. Does not drink alcohol. FAMILY HISTORY: Noncontributory. PHYSICAL EXAMINATION GENERAL: Well built, nourished lady, alert, oriented, not in any obvious distress. VITAL SIGNS: Heart rate is 73, blood pressure is 180/72, respiratory rate is 18. HEENT: Atraumatic. NECK: No JVD, bruit, thyromegaly, lymphadenopathy. CARDIOVASCULAR: First and second heart sounds heard. No murmurs, rubs, or gallops appreciated. CHEST: Clear to auscultation. ABDOMEN: Soft, nontender. EXTREMITIES: No edema. Right groin looks good. No hematoma. LABORATORY DATA: WBC is 16.0, hemoglobin is 13.3, hematocrit is 40.1, platelets are 353. Sodium is 139, potassium 3.7, chloride is 108, bicarb is 18, BUN is 9, creatinine 0.8. Troponin 0.016. INR is 1.1. IMPRESSION 1. Inferior wall myocardial infarction. 2. Status post thrombectomy and stent placement in the right coronary artery. 3. History of hypertension. 4. History of diabetes mellitus. 5. Former tobacco use. 6. History of stent placement in the right coronary artery. 7. Leukocytosis. PLAN 1. Patient underwent thrombectomy and stent placement in the right coronary artery. She tolerated the procedure well. 2. Patient has been started on Integrilin, can continue the same. 3. Continue with aspirin, clopidogrel, statins, and beta blockers. 4. Patient has been counseled on diet, avoidance of exertional activity. 5. Get echocardiogram to assist LV function and valvular function. 6. Pulmonary is evaluating patient for transient hypoxia. 7. Further cardiac workup depending on clinical course. Discussed my impression, plan, and management with patient, which she understands. As always, I appreciate and thank you very much for your referrals. Job#: [id number] ANALILIA
--- NOTE | 2018-04-15 13:30 | Consultation ---
DATE OF CONSULTATION: April 15, 2018 CARDIOLOGY CONSULTATION TIME OF CONSULTATION: 10 a.m. CHIEF COMPLAINT: Inferior STEMI with acute systolic heart failure. HISTORY OF PRESENT ILLNESS: Ms. Zhang is a 48-year-old lady with recent diagnosed hypertension, hypercholesterolemia, type 2 diabetes, and prior history of inferior STEMI, who had 2 stents placed on February 14, 2018, with Dr. Hahn. The patient reports that she has been taking her aspirin and Plavix, as well as her other medications. However, awoken from sleep at around 5 a.m. this morning with severe substernal chest pressure, tightness, heaviness, 10/10 in maximum intensity associated with diaphoresis, dyspnea and overall malaise. She had problems breathing, and was noted to be in acute systolic heart failure. EKG showed acute inferior ST-elevation myocardial infarction. She was taken emergently to the cardiac catheterization laboratory, and now she is status post cardiac catheterization with revascularization of the distal RCA, which showed distal RCA thrombosis with clot. There was an expansion of a previously placed stent with implantation of a new Resolute Сергей, 2.25 x 12 mm stent directly into the right PDA and maintained on Integrilin drip. She is in acute systolic heart failure with EF of about 20% to 25%, and is on her way to the ICU for further care and management. End-diastolic pressure was 36 mmHg. Her chest pain has now significantly subsided post revascularization. PAST MEDICAL HISTORY 1. Hypertension, essential. 2. Hypercholesterolemia. 3. Coronary artery disease with prior history of inferior STEMI on February 14, 2018, with implantation of a Synergy 2.75-mm stent proximally and a 2.5 mm drug-eluting stent distally. 4. Type 2 diabetes. PAST SURGICAL HISTORY: Prior history of RCA PCI as noted above. FAMILY HISTORY: Father had a heart attack in his 40s. Mother is alive and well. SOCIAL HISTORY: She is a former smoker. Used to smoke a pack per day. Quit 2 months ago with over 30-pack year smoking history. Denies any alcohol or illicit drug use. ALLERGIES: NO KNOWN DRUG ALLERGIES. HOME MEDICATIONS 1. Aspirin 325 mg daily. 2. Lipitor 20 mg daily. 3. Plavix 75 mg daily. 4. Metformin 500 mg b.i.d. 5. Metoprolol 12.5 mg b.i.d. 6. Sublingual nitroglycerin p.r.n. REVIEW OF SYSTEMS GENERAL: Positive for fatigue and malaise. Denies any fevers or chills. HEENT: No headaches, visual complaints, sore throat, stuffy nose. Positive for severe exertional dyspnea and dyspnea at rest with the chest pain. CARDIOVASCULAR: Chest pain as per HPI. Positive for orthopnea and coughing. : Denies any dysuria, pyuria. GI: Positive for nausea. No vomiting, hematemesis, bright red blood per rectum, melena. Does have some constipation and left lower quadrant discomfort in the past week. NEUROLOGIC: Denies any focal weakness, numbness, tingling, seizures, headache. The remainder of the review of systems is negative and are otherwise mentioned. PHYSICAL EXAMINATION VITALS: Height of 63 inches, weight 130 pounds. BMI is 23. Blood pressure is 138/90, pulse 88, respiratory rate 22, O2 sat is 92% on 3 L nasal cannula. She is afebrile. GENERAL: This is a lady who appears in mild to moderate respiratory distress, but is improving post revascularization and is having resolving chest pain currently. HEENT: Normocephalic and atraumatic. Pupils equal, round and reactive to light. Extraocular movements intact. Oropharynx is clear. NECK: No elevation of jugular venous pulsation or carotid bruits. CARDIOVASCULAR: Regular rate and rhythm. Normal S1 and S2. Positive S3 gallop. A 2/6 systolic murmur at the left lower sternal border. LUNGS: Show diminished bibasilar breath sounds and crackles. ABDOMEN: Soft, nontender and nondistended. Normoactive bowel sounds. No hepatosplenomegaly. BACK: No costovertebral angle tenderness. EXTREMITIES: Warm with 1-2+ bilateral femoral pulses. One plus radial pulses and 0-1+ pedal pulses. NEUROLOGIC: Cranial nerves II-XII are intact. Strength is 5/5. She appears nonfocal. PSYCH: Positive for anxiety. No depression. LABS: Reviewed. White count 16.1, hemoglobin 13.3, hematocrit 40.1, and platelets of 353,000. Sodium 139, potassium 3.7, chloride 108, bicarb 18, BUN 9, creatinine 0.8, glucose 186. Calcium of 9.4. AST 19, ALT 19, alk phos 49, total protein 7. Albumin 3.8. INR is 1.18. EKG shows inferior ST-elevation myocardial infarction pattern. Cardiac catheterization revealed 100% thrombotic occlusion of the distal RCA that was revascularized with implantation of a new Resolute Сергей 2.25 x 12 mm drug-eluting stent, which was done after aspiration thrombectomy. There is a 70% midcircumflex stenosis and LAD that rapidly tapers from mild diffuse disease. Left ventricular ejection fraction is about 20% to 25% with inferior wall hypokinesis. End-diastolic pressure is 36 mmHg. PLAN/RECOMMENDATIONS 1. Will continue aspirin. The patient was reloaded with Plavix therapy and Integrilin infusion. 2. Differential diagnosis of thrombosis explained to the patient as being a partial stent collapse in the distal aspect of the stent versus Plavix hyporesponsiveness versus potential hypercoagulable state. 3. Otherwise, will continue Integrilin infusion overnight. I have taken the liberty of consulting the welding pantograph operator she has previous seen, Dr. Hahn, to help take over the care and see what he thinks. 4. Beta pedro therapy as tolerated. 5. Forty mg of IV Lasix times 1 on account of her acute pulmonary symptoms and acute hypoxic respiratory failure. 6. ICU admission with close observation. 7. Pulmonary consultation for close pulmonary watch. Job#: [id number] ИВАН
[2018-04-15 14:57] LABS: CREATINE KINASE MB 64.4 ng/mL (0-5.0)
[2018-04-15] MEDS ORDERED: DEXTROSE 50% SYRINGE 50 ML IV PRN (17:00)
[2018-04-15] MEDS: METOPROLOL TARTRATE 25 MG TAB PO SCH (17:50)
[2018-04-15] MEDS ORDERED: ATORVASTATIN 20 MG TAB PO SCH ×2 (21:00)
[2018-04-15] MEDS: ATORVASTATIN 40 MG TAB PO SCH (22:29)
[2018-04-15] MEDS: MELATONIN 3 MG TAB PO SCH (22:29)
[2018-04-15] MEDS: INSULIN LISPRO 100 UNIT/1 ML 3ML VIAL SQ SCH (22:33)
[2018-04-15 22:45] LABS: CREATINE KINASE MB 32.9 ng/mL (0-5.0)
[2018-04-16] VITALS (9 sets, daily range): BP systolic 99–142; BP diastolic 58–93
[2018-04-16] MEDS ORDERED: EPTIFIBATIDE 100 ML ONE (02:04)
[2018-04-16] MEDS: EPTIFIBATIDE IV SCH (03:30)
[2018-04-16] MEDS: SODIUM CHLORIDE 0.9% IV SCH (03:30)
[2018-04-16 04:39] LABS: BASOPHILS % 0.4 % (0.0-1.0); EOSINOPHILS # (AUTO) 0.1 (0.0-0.4); EOSINOPHILS % 0.9 % (0.0-6.0); HEMATOCRIT 34.7 % (34.2-44.1); HEMOGLOBIN 11.5 g/dL (12.0-16.0); LYMPHOCYTES # (AUTO) 0.6 (1.0-3.2); LYMPHOCYTES % 6.5 % (18.0-39.1); MEAN CORPUSCULAR HEMOGLOBIN 29.7 pg (28-32); MEAN CORPUSCULAR HGB CONC 33.1 g/dL (31-35); MEAN CORPUSCULAR VOLUME 89.7 fL (81-99); MONOCYTES # (AUTO) 0.7 (0.2-0.8); MONOCYTES % 6.6 % (4.4-11.3); NEUTROPHILS # (AUTO) 8.4 (2.1-6.9); NEUTROPHILS % 85.3 % (38.7-80.0); PLATELET COUNT 244 x10e3/uL (140-360); RED BLOOD COUNT 3.87 x10e6/uL (3.6-5.1); RED CELL DISTRIBUTION WIDTH 14.5 % (11.7-14.4)
[2018-04-16] MEDS: DEXTROSE 5%/0.45% SOD CHL 1,000 ML IV SCH (04:42)
[2018-04-16 05:02] LABS: ALANINE AMINOTRANSFERASE 21 IU/L (0-55); ALBUMIN 3.1 g/dL (3.5-5.0); ALBUMIN/GLOBULIN RATIO 1.2 (0.8-2.0); ALKALINE PHOSPHATASE 46 IU/L (40-150); ANION GAP 12.4 mmol/L (8-16); BLOOD UREA NITROGEN 5 mg/dL (7-26); BUN/CREATININE RATIO 8 (6-25); CALCIUM 8.6 mg/dL (8.4-10.2); CARBON DIOXIDE 23 mmol/L (22-29); CHLORIDE 106 mmol/L (98-107); CREATININE, SERUM 0.64 mg/dL (0.57-1.11); EST GLOMERULAR FILTRATION RATE > 60 ML/MIN (60-); GLUCOSE 131 mg/dL (74-118); POTASSIUM 3.4 mmol/L (3.5-5.1); SODIUM 138 mmol/L (136-145)
[2018-04-16 05:20] LABS: CHOL/HDL RATIO 2.9 (3.0-3.6)
[2018-04-16 06:46] LABS: BILIRUBIN,URINE NEGATIVE (NEGATIVE); CLARITY,URINE SL CLOUDY (CLEAR); COLOR,URINE YELLOW (YELLOW); KETONES,URINE NEGATIVE (NEGATIVE); LEUKOCYTE ESTERASE ,URINE NEGATIVE (NEGATIVE); NITRITE,URINE NEGATIVE (NEGATIVE); PROTEIN,URINE DIPSTICK NEGATIVE (NEGATIVE); URINE UROBILINOGEN 0.2 mg/dL (0.2 - 1)
[2018-04-16 07:09] LABS: BACTERIA,URINE FEW /HPF; RBC,URINE >50 /HPF (0-5)
[2018-04-16 07:10] LABS: EPITHELIAL CELLS,URINE FEW /LPF
[2018-04-16] MEDS: INSULIN LISPRO 100 UNIT/1 ML 3ML VIAL SQ SCH ×4 (07:30→20:01)
[2018-04-16] MEDS: ASPIRIN 325 MG TAB PO SCH (08:21)
[2018-04-16] MEDS: METOPROLOL TARTRATE 25 MG TAB PO SCH ×2 (08:22→16:44)
[2018-04-16] MEDS: CLOPIDOGREL BISULFATE 75 MG TAB PO SCH (08:22)
[2018-04-16] MEDS: LISINOPRIL 2.5 MG TAB PO SCH (08:22)
[2018-04-16] MEDS ORDERED: DOCUSATE SODIUM 100 MG CAP PO SCH (09:00)
[2018-04-16] MEDS ORDERED: ASPIRIN 325 MG TAB EC PO SCH (09:00)
[2018-04-16] MEDS ORDERED: CLOPIDOGREL BISULFATE 75 MG TAB PO SCH (09:00)
[2018-04-16] MEDS: FAMOTIDINE 20 MG TAB PO SCH ×2 (09:45→16:42)
[2018-04-16] MEDS: DOCUSATE SODIUM 100 MG CAP PO SCH (16:43)
[2018-04-16] MEDS: MELATONIN 3 MG TAB PO SCH (20:39)
[2018-04-16] MEDS: ATORVASTATIN 40 MG TAB PO SCH (20:39)
[2018-04-17 00:20] VITALS: BP 115/57
[2018-04-17 04:05] VITALS: BP 114/56
[2018-04-17 05:33] LABS: BASOPHILS # (AUTO) 0.1 (0.0-0.1); BASOPHILS % 0.8 % (0.0-1.0); EOSINOPHILS # (AUTO) 0.2 (0.0-0.4); EOSINOPHILS % 2.3 % (0.0-6.0); HEMATOCRIT 33.8 % (34.2-44.1); LYMPHOCYTES % 13.4 % (18.0-39.1); MEAN CORPUSCULAR HEMOGLOBIN 29.6 pg (28-32); MEAN CORPUSCULAR HGB CONC 32.5 g/dL (31-35); MEAN CORPUSCULAR VOLUME 91.1 fL (81-99); MONOCYTES # (AUTO) 0.7 (0.2-0.8); MONOCYTES % 9.5 % (4.4-11.3); NEUTROPHILS # (AUTO) 5.7 (2.1-6.9); NEUTROPHILS % 73.6 % (38.7-80.0); PLATELET COUNT 234 x10e3/uL (140-360); RED BLOOD COUNT 3.71 x10e6/uL (3.6-5.1); RED CELL DISTRIBUTION WIDTH 14.4 % (11.7-14.4)
[2018-04-17 05:53] LABS: ANION GAP 11.9 mmol/L (8-16); BLOOD UREA NITROGEN 7 mg/dL (7-26); BUN/CREATININE RATIO 11 (6-25); CARBON DIOXIDE 25 mmol/L (22-29); CHLORIDE 107 mmol/L (98-107); CREATININE, SERUM 0.64 mg/dL (0.57-1.11); EST GLOMERULAR FILTRATION RATE > 60 ML/MIN (60-); GLUCOSE 114 mg/dL (74-118); POTASSIUM 3.9 mmol/L (3.5-5.1); SODIUM 140 mmol/L (136-145)
[2018-04-17] MEDS: INSULIN LISPRO 100 UNIT/1 ML 3ML VIAL SQ SCH (07:30)
[2018-04-17 08:02] VITALS: BP 117/70
[2018-04-17] MEDS: FAMOTIDINE 20 MG TAB PO SCH (08:06)
[2018-04-17] MEDS: LISINOPRIL 2.5 MG TAB PO SCH (08:48)
[2018-04-17] MEDS: ASPIRIN 325 MG TAB PO SCH (08:48)
[2018-04-17] MEDS: METOPROLOL TARTRATE 25 MG TAB PO SCH (08:48)
[2018-04-17] MEDS: CLOPIDOGREL BISULFATE 75 MG TAB PO SCH (08:48)
[2018-04-17] MEDS: DOCUSATE SODIUM 100 MG CAP PO SCH (08:48)
[2018-04-17 09:24] VITALS: BP 117/70
[2018-04-17] MEDS ORDERED: LOSARTAN POTASS25 MG PO (09:48)
--- NOTE | 2018-04-17 10:39 | Discharge Summary ---
CONSULTANTS: Dr. Alta Renee and Dr. Louis Hahn. FINAL DIAGNOSES 1. ST elevation myocardial infarction, recurrent. 2. Status post right coronary artery stent placement. SUMMARY: A 48-year-old female with a previous RCA stent placement. Apparently, her distal area is also obstructed as she came in with acute myocardial infarction ST elevation. Immediately, the patient was brought into the cardiac catheterization lab and subsequently underwent a stent placement to the RCA. Patient is doing much better now. Her ejection fraction is approximately 40% to 45%. She just recently stopped smoking after the first myocardial infarction. The patient is stable. Patient has been cleared to go home and follow up with Dr. Dr. Louis Hahn. I will add on losartan 50 mg once a day. She will resume her other home medications. The patient is already on Plavix, aspirin, beta pedro. The patient is stable to be discharged home today. Job#: [id number] MAGGIE
== END 2018-04-17 10:38 | disposition home or self-care (01) | DRG 246 ==
LOC: ER 05:29 → ERHOLD 06:07 → UNDOADMIN 06:07 → CATH LAB 06:30 → PACU V 08:08 → ICU 09:25 → MED/SURG2 04-16 10:58
PROVIDERS: ADMIT Internal Medicine; ATTEND Internal Medicine
PROC: 02C03ZZ Extirpation of Matter from Coronary Artery, One Artery, Percutaneous Approach (ICD-10-PCS; principal; 2018-04-15)
PROC: 027034Z Dilation of Coronary Artery, One Artery with Drug-eluting Intraluminal Device, Percutaneous Approach (ICD-10-PCS; 2018-04-15)
PROC: 4A023N7 Measurement of Cardiac Sampling and Pressure, Left Heart, Percutaneous Approach (ICD-10-PCS; 2018-04-15)
PROC: B2111ZZ Fluoroscopy of Multiple Coronary Arteries using Low Osmolar Contrast (ICD-10-PCS; 2018-04-15)
PROC: B2151ZZ Fluoroscopy of Left Heart using Low Osmolar Contrast (ICD-10-PCS; 2018-04-15)
DX: I21.19 ST elevation (STEMI) myocardial infarction involving other coronary artery of inferior wall (principal); J96.01 Acute respiratory failure with hypoxia; I50.23 Acute on chronic systolic (congestive) heart failure; E11.9 Type 2 diabetes mellitus without complications; E78.00 Pure hypercholesterolemia, unspecified; J44.9 Chronic obstructive pulmonary disease, unspecified; Z87.891 Personal history of nicotine dependence; I25.2 Old myocardial infarction; I25.10 Atherosclerotic heart disease of native coronary artery without angina pectoris; Z95.5 Presence of coronary angioplasty implant and graft; Z79.84 Long term (current) use of oral hypoglycemic drugs; K59.00 Constipation, unspecified; I11.0 Hypertensive heart disease with heart failure; I21.4 Non-ST elevation (NSTEMI) myocardial infarction; I24.9 Acute ischemic heart disease, unspecified
CPT/HCPCS: 36415; 71045; 80048; 80053; 80061; 81001; 82550; 82553; 82948; 84484; 85025; 85610; 85730; 92920; 92928; 92973; 93005; 93306; 93458; 96374; 99283; J0583; J1200; J1327; J1644; J1940; J2001; J2250; J2270; J7030; Q9967

== ENCOUNTER 2018-06-01 18:55 | Observation (INO) | payer SELFPAY ==
[~2018-06-01] VITALS: Ht 157.5 cm; Wt 59.0 kg
[~2018-06-01 18:55] MED LIST changes: +LOSARTAN POTASS25 MG PO
[2018-06-01] MEDS ORDERED: ASPIRIN 81 MG CHEW TAB PO ONE ×2 (19:30→21:45)
[2018-06-01 20:04] LABS: BASOPHILS # (AUTO) 0.1 (0.0-0.1); BASOPHILS % 0.6 % (0.0-1.0); EOSINOPHILS # (AUTO) 0.1 (0.0-0.4); EOSINOPHILS % 1.7 % (0.0-6.0); HEMATOCRIT 34.9 % (34.2-44.1); HEMOGLOBIN 11.2 g/dL (12.0-16.0); LYMPHOCYTES # (AUTO) 1.1 (1.0-3.2); LYMPHOCYTES % 14.5 % (18.0-39.1); MEAN CORPUSCULAR HEMOGLOBIN 27.7 pg (28-32); MEAN CORPUSCULAR HGB CONC 32.1 g/dL (31-35); MEAN CORPUSCULAR VOLUME 86.2 fL (81-99); MONOCYTES # (AUTO) 0.6 (0.2-0.8); MONOCYTES % 7.5 % (4.4-11.3); NEUTROPHILS # (AUTO) 5.9 (2.1-6.9); NEUTROPHILS % 75.3 % (38.7-80.0); PLATELET COUNT 283 x10e3/uL (140-360); RED BLOOD COUNT 4.05 x10e6/uL (3.6-5.1); RED CELL DISTRIBUTION WIDTH 14.3 % (11.7-14.4)
[2018-06-01 20:08] LABS: INR 0.95; PROTHROMBIN TIME 13.5 seconds (11.9-14.5)
[2018-06-01 20:09] LABS: PARTIAL THROMBOPLASTIN TIME 26.4 seconds (23.8-35.5)
[2018-06-01 20:24] LABS: ALANINE AMINOTRANSFERASE 57 IU/L (0-55); ALBUMIN 3.8 g/dL (3.5-5.0); ALBUMIN/GLOBULIN RATIO 1.2 (0.8-2.0); ALKALINE PHOSPHATASE 80 IU/L (40-150); ANION GAP 17.8 mmol/L (8-16); BLOOD UREA NITROGEN 10 mg/dL (7-26); BUN/CREATININE RATIO 13 (6-25); CALCIUM 9.3 mg/dL (8.4-10.2); CARBON DIOXIDE 20 mmol/L (22-29); CHLORIDE 108 mmol/L (98-107); CREATININE, SERUM 0.78 mg/dL (0.57-1.11); EST GLOMERULAR FILTRATION RATE > 60 ML/MIN (60-); GLUCOSE 125 mg/dL (74-118); LIPASE 39 U/L (8-78); MAGNESIUM 1.9 MG/DL (1.3-2.1); POTASSIUM 3.8 mmol/L (3.5-5.1); SODIUM 142 mmol/L (136-145)
[2018-06-01 20:47] LABS: THYROID STIMULATING HORMONE 1.046 uIU/mL (0.350-4.940)
[2018-06-01 20:51] LABS: CLARITY,URINE CLEAR (CLEAR); COLOR,URINE YELLOW (YELLOW); LEUKOCYTE ESTERASE ,URINE NEGATIVE (NEGATIVE); NITRITE,URINE NEGATIVE (NEGATIVE)
[2018-06-01 20:52] LABS: BILIRUBIN,URINE NEGATIVE (NEGATIVE); KETONES,URINE NEGATIVE (NEGATIVE); PREGNANCY TEST, URINE NEGATIVE (NEGATIVE); PROTEIN,URINE DIPSTICK NEGATIVE (NEGATIVE); URINE UROBILINOGEN 0.2 mg/dL (0.2 - 1)
[2018-06-01 20:58] LABS: BACTERIA,URINE FEW /HPF; EPITHELIAL CELLS,URINE FEW /LPF; RBC,URINE 0-5 /HPF (0-5); WBC,URINE (MAN) 0-5 /HPF (0-5)
[2018-06-01] MEDS ORDERED: ALBUTEROL SULF 0.083% NEB SOLN 3 ML NEB NEB STA (21:02)
[2018-06-01] MEDS ORDERED: IPRATROPIUM BROMIDE 0.02% 2.5 ML NEB NEB STA (21:02)
--- NOTE | 2018-06-01 21:03 | Diagnostic Imaging Report ---
EXAM: CHEST SINGLE (PORTABLE), AP 1 view INDICATION: History of [place], shortness of breath COMPARISON: AP view of the chest April 15, 2018 FINDINGS: LINES/TUBES: None LUNGS: Pulmonary edema. PLEURA: No effusions or pneumothorax. HEART AND MEDIASTINUM: Cardiomegaly BONES AND SOFT TISSUES: No acute findings. IMPRESSION: Cardiomegaly with pulmonary edema Signed by: Dr. Theresa Mahmood M.D. on 06/01/2018 8:59 PM
[2018-06-01 21:16] LABS: CREATINE KINASE 58 IU/L (29-168)
[2018-06-01] MEDS ORDERED: SODIUM CHLORIDE FLUSH 10 ML SYR INJ PRN (21:45)
[2018-06-01] MEDS ORDERED: FUROSEMIDE INJ 10 MG/ML 4 ML VIAL IV ONE (21:45)
[2018-06-01] MEDS ORDERED: ONDANSETRON HCL INJ 2 MG/ML VIAL IV PRN (21:45)
[2018-06-02 03:45] LABS: CREATINE KINASE MB 1.1 ng/mL (0-5.0)
[2018-06-02] MEDS ORDERED: ASPIRIN 81 MG ENTERIC COATED PO SCH (09:00)
[2018-06-02] MEDS ORDERED: NITROGLYCERIN 0.4 MG SUBL SL SCH (09:45)
[2018-06-02 12:10] LABS: CREATINE KINASE MB 0.9 ng/mL (0-5.0)
--- NOTE | 2018-06-02 14:31 | Consultation ---
DATE OF CONSULTATION: June 02, 2018 REASON FOR CONSULTATION: Shortness of breath. CONSULTING PHYSICIAN: Dr. Renee. HPI: This is a pleasant 48-year-old female that presented with shortness of breath. According to the patient, she was started having shortness of breath that get worse with walking, thus she came in to the emergency room for evaluation. She has a history of MT and stent placement in the past. She stated that her shortness of breath also get worse with laying flat in bed and when she sit up. She denies any palpitation, any diaphoresis, any headache, any nausea or vomiting. Troponin x2 was negative. Chest x-ray showed cardiomegaly with pulmonary edema. BNP was 572. PAST MEDICAL HISTORY: Hypertension, diabetes, MT, CAD with stent, hyperlipidemia. PAST SURGICAL HISTORY: Tubal ligation and cardiac stent placement. FAMILY HISTORY: Positive for hypertension. SOCIAL HISTORY: She quit smoking and she lives at home with a friend. MEDICATIONS: She was on aspirin, atorvastatin, Plavix, losartan, metformin, metoprolol, and nitroglycerin p.r.n. ALLERGIES: SHE IS NOT ALLERGIC TO ANY MEDICATION. REVIEW OF SYSTEMS: Negative except those mentioned above. She was positive for PND and dyspnea. PHYSICAL EXAMINATION VITAL SIGNS: Temperature 98, heart rate 71, blood pressure 127/78, pulse ox 99% on room air. GENERAL: She is awake, alert, and oriented x3. HEENT: Mucous membranes moist. NECK: Supple. LUNGS: Bilateral with decreased breath sounds. CARDIOVASCULAR: S1 and S2 present. ABDOMEN: Soft. NEUROLOGICAL: Intact. EXTREMITIES: With no edema. LABS: Sodium 142, potassium 3.8, chloride 108, CO2 of 20, BUN 10, creatinine 0.78, glucose 125. White blood cells 7.86, hemoglobin 11.2, hematocrit 34.9, platelets 283. PT 10.5, PTT 26.4, INR 0.95. IMPRESSION 1. Shortness of breath. 2. Hypertension. 3. Diabetes. 4. Coronary artery disease with stent. 5. Hyperlipidemia. 6. History of myocardial infarction. ASSESSMENT AND PLAN 1. She had an echocardiogram in January that showed ejection fraction 60% to 65%. Since the BNP was elevated, we will go ahead and get a new echocardiogram to reassess the LV and the valve function. 2. We will put her on low dose Lasix. Continue beta pedro and MICHAEL inhibitor. 3. We will get serial cardiac enzymes. 4. Continue her home medications. Further cardiac workup pending clinical course. Thank you for this consultation. Dictated by: Lanre Weathers NP Job#: [id number] JIN
[2018-06-02] MEDS ORDERED: LASIX40 MG PO (16:48)
[2018-06-02] MEDS ORDERED: K DUR10 MEQ PO (16:48)
[2018-06-02] MEDS ORDERED: METOPROLOL TARTRATE 25 MG TAB PO SCH (17:00)
[2018-06-02] MEDS ORDERED: METFORMIN HCL 500 MG TAB PO SCH (17:00)
[2018-06-02] MEDS ORDERED: ATORVASTATIN 20 MG TAB PO SCH (21:00)
[2018-06-02] MEDS ORDERED: ATORVASTATIN 40 MG TAB PO SCH (21:00)
[2018-06-03] MEDS ORDERED: ASPIRIN 325 MG TAB PO SCH (09:00)
[2018-06-03] MEDS ORDERED: FUROSEMIDE 40 MG TAB PO SCH (09:00)
[2018-06-03] MEDS ORDERED: CLOPIDOGREL BISULFATE 75 MG TAB PO SCH (09:00)
[2018-06-03] MEDS ORDERED: LOSARTAN POTASSIUM 25 MG TAB PO SCH (09:00)
--- OUTSIDE RECORDS SUMMARY | 2018-06-03 14:09 | XMS REPORT | Summary of Care ---
Author Author IZZY DALE Organization Unknown Address Unknown Phone Unavailable Care Team Providers Care Air/Ocean Export Clerk Name Role Phone IZZY DALE Unavailable Unavailable Unavailable Unavailable Functional Status Name Dates Details Functional status health issues are not documented Status: Name Dates Details Cognitive status health issues are not documented Status: Problems Name Dates Details Depression screening (V79.0, Z13.89) Status: Active Anxiety (300.00, F41.9) Status: Active LLQ abdominal pain (789.04, R10.32) Status: Active Acute epigastric pain (789.06, R10.13) Status: Active Status post myocardial infarction (412, I25.2) Status: Active HTN (hypertension) (401.9, I10) Status: Active Hyperlipidemia (272.4, E78.5) Status: Active Controlled diabetes mellitus (250.00, E11.9) Status: Active Medications Name Dates Details Clopidogrel Bisulfate 75 MG Oral Tablet TAKE 1 TABLET BY MOUTH EVERY DAY Quantity: 90 KIRSTIN P.A., IZZY Active Atorvastatin Calcium 80 MG Oral Tablet TAKE 1 TABLET BY MOUTH DAILY * Quantity: 90 Refills: 0 KIRSTIN P.A., IZZY Active Metoprolol Tartrate 25 MG Oral Tablet 1/2 tab BID * Quantity: 90 Refills: 0 KIRSTIN P.A., IZZY Active Nitroglycerin 0.4 MG Sublingual Tablet Sublingual DISSOLVE 1 TABLET UNDER THE TONGUE NEEDED FOR CHEST PAIN. * Refills: 0 Active MetFORMIN HCl ER 500 MG Oral Tablet Extended Release 24 Hour TAKE 0.5 TABLET TWICE DAILY * Quantity: 90 Refills: 0 KIRSTIN P.A., IZZY Active BuPROPion HCl ER (XL) 150 MG Oral Tablet Extended Release 24 Hour TAKE 1 TABLET DAILY DIRECTED. * Quantity: 30 Refills: 1 KIRSTIN P.A., IZZY * Start : 13-Mar-2018 Active Losartan Potassium 50 MG Oral Tablet TAKE 1 TABLET DAILY. * Refills: 0 Active Aspirin 81 MG TABS TAKE 1 TABLET DAILY. * Refills: 0 Active Pepcid 20 MG Oral Tablet TAKE 1 TABLET AT BEDTIME. * Refills: 0 Active Melatonin 3 MG Oral Capsule TAKE 1 CAPSULE AT BEDTIME NEEDED. * Refills: 0 Active Omeprazole 40 MG Oral Capsule Delayed Release TAKE ONE CAPSULE BY MOUTH EVERY DAY * Quantity: 30 Refills: 1 KIRSTIN P.A., IZZY * Start : 23-Apr-2018 Active Dicyclomine HCl - 20 MG Oral Tablet TAKE 1 TABLET 3 TIMES DAILY * Quantity: 30 Refills: 2 KIRSTIN P.A., IZZY * Start : 23-Apr-2018 Active Allergies and Adverse Reactions Name Dates Details No Known Drug Allergies (Allergy) Status: Active Past Medical History Name Dates Details History of diabetes mellitus (V12.29, Z86.39) Status: Resolved History of myocardial infarction (412, I25.2) Status: Resolved Procedures Procedure Dates Details [O] Urine Dipstick (In Office) Date: 23-Apr-2018 US Abdomen complete/Pelvis/Pelvis Transvaginal [id number] Date: 23-Apr-2018 History of Cath Stent Placement Completed Immunization Name Dates Details Immunizations not documented Family History Name Dates Details Family history of diabetes mellitus (V18.0, Z83.3) Status: Active Name Dates Details Family history of cardiac disorder (V17.49, Z82.49) Status: Active Social History Name Dates Details - Status: Name Dates Details Smoker. current status unknown Former smoker Vital Signs Date Test Result Details :03 BP Systolic 134 mm[Hg] Status: Comments: Location: LUE; Position: Sitting BP Diastolic 81 mm[Hg] Status: Comments: Location: E; Position: Sitting Height 64 in Status: Weight 118.5 lb Status: Body Mass Index Calculated 20.34 kg/m2 Status: Body Surface Area Calculated 1.57 m2 Status: Temperature 97.6 f Status: Comments: Method: Temporal Heart Rate 64 /min Status: Respiration Rate 16 /min Status: Results Date Description Value Details 23-Apr-20188:40 [O] Urine Dipstick (In Office) Glucose normal (Normal) LEUKOCYTES neg (Normal) NITRITE neg (Normal) UROBILINOGEN neg (Normal) PROTEIN trace pH 5 URINE BLOOD trace SPECIFIC GRAVITY 1.015 KETONES neg (Normal) BILIRUBIN neg (Normal) COLOR URINE yellow (Normal) APPEARANCE clear (Normal) Plan of Care Name Dates Details Planned Observations Planned Goals not documented Interventions Provided Medication Changes* BuPROPion HCl ER (XL) 150 MG Oral Tablet Extended Release 24 Hour - Start * Dicyclomine HCl - 20 MG Oral Tablet - Start * Omeprazole 40 MG Oral Capsule Delayed Release - Start Labs/Procedures/Imaging* [O] Urine Dipstick (In Office); To Be Done: 23 Apr 2018 * US Abdomen complete/Pelvis/Pelvis Transvaginal [id number]; To Be Done: 23 Apr 2018 * [O] Urine Dipstick (In Office); Done: 23 Apr 2018 Plan* Trial of PPI + Pepcid AC, * Obtain MR from Hospital with most recent labs. * If sx perisists and no improvement in 2-3 weeks, pt to go do abd/pelvis/transvaginal u/s [place] * UA: normal in office. * Patient is self-pay. Instructions Name Dates Details Instructions not documented Encounters Appointment; IZZY FULTON P.A. Encounter Diagnosis: Problem not documented On: 13-Mar-2018 13:30 Appointment; IZZY FULTON P.A. Encounter Diagnosis: Problem not documented On: 23-Apr-2018 8:00
--- NOTE | 2018-07-23 01:10 | Discharge Summary ---
CHIEF COMPLAINT: Dyspnea. FINAL DIAGNOSES: 1. Shortness of breath. 2. Hypertension. 3. Diabetes. 4. Coronary artery disease with history of stents. DISPOSITION: Home. [id number] female with a known history of coronary artery disease and COPD, brought to the ER with a 2- to 3-day history of shortness of breath. No chest pain. No diaphoresis. No radiation. No nausea or vomiting. Does have history of coronary artery disease. She is status post SC x2. She does have onboard coronary stents. She underwent review and evaluation in the emergency room and she was admitted to the facility for care regarding issues of shortness of breath, history of coronary artery disease, status post SC x2 with stents, COPD. Will be placed in observation. Will be monitoring cardiac enzymes. Will request a cardiology follow. She was reviewed in observation by cardiology. She has been maintained on ADA diet. Receiving aspirin, IV fluids. Her laboratory studies were stable. BNP was noted at 572. Continued to wait on the remaining coronary enzymes. Her echocardiogram was showing ejection fraction 60% to 65%. Continued on beta blockers and MICHAEL inhibitors along with Lasix. Progression was positive, and she was cleared for discharge and she was able to be released home on June 02, 2018 in stable condition. EKG shows normal sinus rhythm, inferior infarct age undetermined. Further echocardiograms were showing now an ejection fraction 40% to 45%. She was released home. She was given brochures on shortness of breath. No equipment or supplies necessary. No drains or [place] are needed. Activity level as directed by me as well as by cardiology. She will be returning back to cardiology in 1 week, following up with her PCP within 1 week. She will continue taking aspirin 325 daily, Lipitor 80 mg at bedtime, Plavix 75 mg daily, Lasix 40 mg daily, losartan potassium 50 mg daily, metformin 500 mg twice a day, Lopressor 12.5 mg twice a day, nitroglycerin 0.4 mg sublingual every 5 minutes x3, potassium chloride 10 mEq daily. She will follow up with her PCP in 1 to 2 weeks. She will be contacting PCP if she has recurrence of symptoms or she will be returning back to the emergency room. Dictated By: LULY Soliz Job#: [id number]
== END 2018-06-02 17:02 | disposition home or self-care (01) ==
LOC: ER 18:55 → ERHOLD 21:44 → IMCU 06-02 15:15
DX: R06.00 Dyspnea, unspecified (principal); I10 Essential (primary) hypertension; E11.9 Type 2 diabetes mellitus without complications; I25.2 Old myocardial infarction; Z87.891 Personal history of nicotine dependence; J44.9 Chronic obstructive pulmonary disease, unspecified; I25.10 Atherosclerotic heart disease of native coronary artery without angina pectoris; Z95.5 Presence of coronary angioplasty implant and graft; E78.5 Hyperlipidemia, unspecified; Z79.84 Long term (current) use of oral hypoglycemic drugs; Z82.49 Family history of ischemic heart disease and other diseases of the circulatory system
CPT/HCPCS: 36415 ×2; 71045; 80053; 81001; 81025; 82550 ×2; 82553 ×2; 82948; 83690; 83735; 83880; 84443; 84484 ×2; 85025; 85379; 85610; 85730; 87086; 93005; 93306; 94640; 99284; G0378 ×2; J1940

== ENCOUNTER 2020-03-11 11:05 | Emergency (ER) | payer OTHER ==
[~2020-03-11] VITALS: Ht 157.5 cm; Wt 59.0 kg
[~2020-03-11 11:05] MED LIST changes: +K DUR10 MEQ PO; +LASIX40 MG PO
[2020-03-11] MEDS ORDERED: ONDANSETRON HCL INJ 2MG/ML 2ML 2 MG/ML VIAL IV STA (11:11)
[2020-03-11] MEDS ORDERED: SODIUM CHLORIDE 0.9% 500ML 500 ML IV STA (11:11)
[2020-03-11] MEDS ORDERED: ASPIRIN 325 MG TAB PO ONE (11:15)
[2020-03-11] MEDS ORDERED: ACETAMINOPHEN 325 MG TAB PO ONE (11:15)
[2020-03-11] MEDS ORDERED: FAMOTIDINE 20 MG/2 ML VIAL IV ONE (11:15)
[2020-03-11] MEDS ORDERED: NITROGLYCERIN 2% OINT 1 GM PKT TOP ONE (11:15)
[2020-03-11 11:47] LABS: BASOPHILS # (AUTO) 0.1 (0.0-0.1); BASOPHILS % 0.7 % (0.0-1.0); EOSINOPHILS # (AUTO) 0.1 (0.0-0.4); EOSINOPHILS % 1.2 % (0.0-6.0); HEMATOCRIT 43.1 % (34.2-44.1); HEMOGLOBIN 14.2 g/dL (12.0-16.0); LYMPHOCYTES # (AUTO) 1.6 (1.0-3.2); LYMPHOCYTES % 17.7 % (18.0-39.1); MEAN CORPUSCULAR HEMOGLOBIN 29.1 pg (28-32); MEAN CORPUSCULAR HGB CONC 32.9 g/dL (31-35); MEAN CORPUSCULAR VOLUME 88.3 fL (81-99); MONOCYTES # (AUTO) 0.6 (0.2-0.8); NEUTROPHILS # (AUTO) 6.7 (2.1-6.9); NEUTROPHILS % 73.1 % (38.7-80.0); PLATELET COUNT 281 x10e3/uL (140-360); RED BLOOD COUNT 4.88 x10e6/uL (3.6-5.1); RED CELL DISTRIBUTION WIDTH 17.2 % (11.7-14.4)
--- NOTE | 2020-03-11 11:48 | Diagnostic Imaging Report ---
EXAMINATION: CHEST SINGLE (PORTABLE) INDICATION: Palpitations COMPARISON: Chest radiograph of 06/01/2018 FINDINGS: LINES/TUBES:EKG leads overlie the chest. LUNGS:The lungs are well-inflated. No focal consolidation or pulmonary edema. PLEURA:No pleural effusion or pneumothorax. MEDIASTINUM:The cardiomediastinal silhouette appears normal in size and shape. Atherosclerotic calcifications of the thoracic aorta. BONES/SOFT TISSUES:No acute osseous injury. ABDOMEN:No free air under the diaphragm. IMPRESSION: No focal pneumonia or pulmonary edema. Signed by: Jenifer Davis MD on 03/11/2020 11:44 AM
--- NOTE | 2020-03-11 11:57 | Emergency Department Note ---
History of Present Illnes History of Present Illness Chief Complaint: Chest Pain History of Present Illness This is a 50 year old female c/o palpitations x 2 weeks worse over the last 3 days sob on exertion and abd pain states when she lays down palpitations go away states hx 3 mi's denies cp seen by dr Rashid in triage . Historian: Patient Arrival Mode: Car Onset (how long ago): week(s) Radiation: Reports non-radiation Severity: moderate Onset quality: gradual Duration (how long): week(s) Progression: waxing and waning Chronicity: new Relieving factors: none Associated symptoms: Reports loss of appetite, Reports malaise, Reports shortness of breath Treatments prior to arrival: none Past Medical/Family History Physician Review I have reviewed the patient's past medical and family history. Any updates have been documented here. Past Medical History Recent Fever: No Clinical Suspicion of Infectio: No New/Unexplained Change in Ment: No Past Medical History: Hypertension, Diabetes, ID, Cancer Other Medical History: HEART ATTACK X2,HEART STENT, TUBAL LIGATION, CANCER OF THE LABIA, DM, HYPERTENSION Past Surgical History: Tubal Ligation Other Surgery: HEART STENT, TUBAL LIGATION Social History Smoking Cessation: Former smoker Physically hurt or threatened: No Other Last Tetanus: UTD Review of Systems Review of Systems Constitutional: Reports as per HPI, Reports malaise EENTM: Reports no symptoms Cardiovascular: Reports as per HPI, Reports palpitations Respiratory: Reports dyspnea Gastrointestinal: Reports nausea Genitourinary: Reports no symptoms Musculoskeletal: Reports no symptoms Integumentary: Reports no symptoms Neurological: Reports no symptoms Psychological: Reports no symptoms Endocrine: Reports no symptoms Hematological/Lymphatic: Reports no symptoms Physical Exam Related Data Allergies: Coded Allergies: No Known Allergies (Unverified , 02/14/18) Triage Vital Signs Vital Signs Date Time Temp Pulse Resp B/P (MAP) Pulse Ox O2 Delivery O2 Flow Rate FiO2 03/11/20 11:14 98.6 80 20 155/88 100 Room Air Physical Exam CONSTITUTIONAL Constitutional: Present well-developed, Present cachectic HENT HENT: Present normocephalic, Present atraumatic, Present oropharynx clear/m oist, Present nose normal HENT L/R: Present left ext ear normal, Present right ext ear normal EYES Eyes: Reports PERRL, Reports conjunctivae normal NECK Neck: Present ROM normal PULMONARY Pulmonary: Present effort normal, Present breath sounds normal CARDIOVASCULAR Cardiovascular: Present regular rhythm, Present heart sounds normal, Present capillary refill normal, Present normal rate GASTROINTESTINAL Abdominal: Present soft, Present nontender, Present bowel sounds normal GENITOURINARY Genitourinary: Present exam deferred SKIN Skin: Present warm, Present dry MUSCULOSKELETAL Musculoskeletal: Present ROM normal NEUROLOGICAL Neurological: Present alert, Present oriented x 3, Present no gross motor or sensory deficits PSYCHOLOGICAL Psychological: Present mood/affect normal, Present judgement normal Results Laboratory Laboratory Laboratory Tests Test 03/11/20 11:21 Lab results reviewed: Yes Imaging Imaging results reviewed: Yes Procedures 12 Lead ECG Interpretation ECG Interpretation : ECG: ECG 1 Jewelry Racker: Interpreted by ED physician Date: Mar 11, 2020 Time: 11:23 Rhythm: sinus rhythm QRS axis: normal Q waves: II, III, aVF Clinical Impression: abnormal ECG Assessment & Plan Medical Decision Making [facility] Assessment & Plan Final Impression: (1) Palpitations (2) Dyspnea Last Vital Signs Date Time Temp Pulse Resp B/P (MAP) Pulse Ox O2 Delivery O2 Flow Rate FiO2 03/11/20 11:14 98.6 80 20 155/88 100 Room Air Home Meds Active Scripts Metoprolol Tartrate (LOPRESSOR) 25 Mg Tab, 12.5 MG PO BID for 30 Days, TAB Prov:MARKELL VIGIL [employer] AUTOMOTIVE SERVICE ASSISTANT 02/17/18 Clopidogrel Bisulfate* (PLAVIX) 75 Mg Tablet, 75 MG PO DAILY for 30 Days Prov:MARKELL VIGIL [employer] AUTOMOTIVE SERVICE ASSISTANT 02/17/18 Atorvastatin Calcium (LIPITOR) 20 Mg Tablet, 80 MG PO HS for 30 Days Prov:YARITZA,MARKELL [employer] AUTOMOTIVE SERVICE ASSISTANT 02/17/18 Aspirin (ASPIRIN) 325 Mg Tablet, 325 MG PO DAILY for 30 Days Prov:MARKELL VIGIL AUTOMOTIVE SERVICE ASSISTANT 02/17/18 Reported Medications Potassium Chloride* (K DUR*) 10 Meq Tabcr, 10 MEQ PO DAILY 06/02/18 Furosemide (LASIX) 40 Mg Tablet, 40 MG PO DAILY, #30 TAB 06/02/18 Losartan Potassium (LOSARTAN POTASSIUM) 25 Mg Tablet, 50 MG PO DAILY, #30 04/17/18 Nitroglycerin (NITROGLYCERIN) 0.4 Mg Tab.subl, 0.4 MG SL Q5MIN, TAB 02/17/18 Metformin Hcl (METFORMIN HCL) 500 Mg Tablet, 500 MG PO BID, #60 TAB 02/15/18 Medications in the ED Aspirin 325 mg ONCE ONCE PO ; Start 03/11/20 at 11:15; Stop 03/11/20 at 11:24; Status DC Famotidine 20 mg ONCE ONCE IV ; Start 03/11/20 at 11:15; Stop 03/11/20 at 11:2 3; Status DC Nitroglycerin 1 gm ONCE ONCE TOP ; Start 03/11/20 at 11:15; Stop 03/11/20 at 11:23; Status DC Acetaminophen 650 mg ONCE ONCE PO ; Start 03/11/20 at 11:15; Stop 03/11/20 at 11:23; Status DC Ondansetron HCl 4 mg NOW STAT IV ; Start 03/11/20 at 11:11; Stop 03/11/20 at 11:23; Status DC Sodium Chloride 500 ml @ 0 mls/hr Q0M STAT IV ; Start 03/11/20 at 11:11; Stop 03/11/20 at 11:16; Status DC BANDAR RASHID MD Mar 11, 2020 11:57
[2020-03-11 12:02] LABS: ALANINE AMINOTRANSFERASE 33 IU/L (0-55); ALBUMIN 3.9 g/dL (3.5-5.0); ALBUMIN/GLOBULIN RATIO 1.2 (0.8-2.0); ALKALINE PHOSPHATASE 61 IU/L (40-150); ANION GAP 16.9 mmol/L (8-16); BLOOD UREA NITROGEN 13 mg/dL (7-26); BUN/CREATININE RATIO 19 (6-25); CALCIUM 9.5 mg/dL (8.4-10.2); CARBON DIOXIDE 23 mmol/L (22-29); CHLORIDE 107 mmol/L (98-107); CREATINE KINASE 52 IU/L (29-168); EST GLOMERULAR FILTRATION RATE > 60 ML/MIN (60-); GLUCOSE 110 mg/dL (74-118); POTASSIUM 3.9 mmol/L (3.5-5.1); SODIUM 143 mmol/L (136-145)
== END 2020-03-11 13:45 | disposition home or self-care (01) ==
LOC: ER 11:25
DX: R00.2 Palpitations (principal); R06.00 Dyspnea, unspecified; R53.81 Other malaise; R63.0 Anorexia; I10 Essential (primary) hypertension; E11.9 Type 2 diabetes mellitus without complications; I25.2 Old myocardial infarction; Z95.5 Presence of coronary angioplasty implant and graft; Z85.44 Personal history of malignant neoplasm of other female genital organs
CPT/HCPCS: 36415; 71045; 80053; 80320; 80329; 82550; 82553; 83880; 84484; 85025; 93005; 99284; J2405; J7040

== ENCOUNTER → 2020-03-31 | Day surgery (SDC) | payer OTHER ==
[~2020-03-31] MED LIST changes: +FENTANYL CITRATE/PF 100MCG/2 ML INJ ONE; +LIDOCAINE HCL 2% LOCAL INJ 5 ML SDV VIAL INJ ONE; +METOPROLOL SUCC25 MG PO; +MIDAZOLAM HCL 2 MG/2 ML VIAL ONE; +PROPOFOL IV EMULSION 10 MG/ML 20 ML VIAL ONE
[2020-03-31 08:37] VITALS: BP 110/65
== END | disposition home or self-care (01) ==
LOC: OR 05:25
PROVIDERS: ATTEND Internal Medicine Gastroenterology
DX: K29.50 Unspecified chronic gastritis without bleeding (principal); K63.5 Polyp of colon; K52.9 Noninfective gastroenteritis and colitis, unspecified; K57.30 Diverticulosis of large intestine without perforation or abscess without bleeding; K64.8 Other hemorrhoids; E11.9 Type 2 diabetes mellitus without complications; I25.10 Atherosclerotic heart disease of native coronary artery without angina pectoris; I25.2 Old myocardial infarction; E78.00 Pure hypercholesterolemia, unspecified; F41.9 Anxiety disorder, unspecified; Z01.812 Encounter for preprocedural laboratory examination; Z11.59 Encounter for screening for other viral diseases; Z79.02 Long term (current) use of antithrombotics/antiplatelets; Z79.82 Long term (current) use of aspirin; Z79.84 Long term (current) use of oral hypoglycemic drugs; Z87.891 Personal history of nicotine dependence
CPT/HCPCS: 36415; 43239; 45380; 45385; 81025; 82948; 88305; 88312; 88342; J2001; J2704; U0002

== ENCOUNTER 2020-06-09 13:50 | Emergency (ER) | payer OTHER ==
[~2020-06-09] VITALS: Ht 157.5 cm; Wt 59.0 kg
[~2020-06-09 13:50] MED LIST changes: -FENTANYL CITRATE/PF 100MCG/2 ML INJ ONE; -LIDOCAINE HCL 2% LOCAL INJ 5 ML SDV VIAL INJ ONE; -MIDAZOLAM HCL 2 MG/2 ML VIAL ONE; -PROPOFOL IV EMULSION 10 MG/ML 20 ML VIAL ONE
[2020-06-09] MEDS ORDERED: SODIUM CHLORIDE 0.9% 1000ML 1,000 ML ONE (14:42)
[2020-06-09] MEDS ORDERED: SODIUM CHLORIDE 0.9% 1000ML 1,000 ML IV SCH (15:00)
[2020-06-09 15:22] LABS: BASOPHILS % 0.4 % (0.0-1.0); EOSINOPHILS # (AUTO) 0.1 (0.0-0.4); EOSINOPHILS % 0.9 % (0.0-6.0); HEMATOCRIT 44.5 % (34.2-44.1); HEMOGLOBIN 14.9 g/dL (12.0-16.0); LYMPHOCYTES # (AUTO) 0.9 (1.0-3.2); LYMPHOCYTES % 8.5 % (18.0-39.1); MEAN CORPUSCULAR HEMOGLOBIN 30.8 pg (28-32); MEAN CORPUSCULAR HGB CONC 33.5 g/dL (31-35); MEAN CORPUSCULAR VOLUME 91.9 fL (81-99); MONOCYTES # (AUTO) 0.9 (0.2-0.8); MONOCYTES % 8.3 % (4.4-11.3); NEUTROPHILS # (AUTO) 8.5 (2.1-6.9); NEUTROPHILS % 81.6 % (38.7-80.0); PLATELET COUNT 303 x10e3/uL (140-360); RED BLOOD COUNT 4.84 x10e6/uL (3.6-5.1); RED CELL DISTRIBUTION WIDTH 15.7 % (11.7-14.4)
[2020-06-09 15:34] LABS: ALANINE AMINOTRANSFERASE 23 IU/L (0-55); ALBUMIN 4.3 g/dL (3.5-5.0); ALBUMIN/GLOBULIN RATIO 1.1 (0.8-2.0); ALKALINE PHOSPHATASE 87 IU/L (40-150); ANION GAP 19.1 mmol/L (8-16); BLOOD UREA NITROGEN 8 mg/dL (7-26); BUN/CREATININE RATIO 10 (6-25); CALCIUM 9.7 mg/dL (8.4-10.2); CARBON DIOXIDE 25 mmol/L (22-29); CHLORIDE 103 mmol/L (98-107); CREATININE, SERUM 0.81 mg/dL (0.57-1.11); EST GLOMERULAR FILTRATION RATE > 60 ML/MIN (60-); GLUCOSE 155 mg/dL (74-118); POTASSIUM 3.1 mmol/L (3.5-5.1); SODIUM 144 mmol/L (136-145)
[2020-06-09] MEDS ORDERED: ONDANSETRON HCL INJ 2MG/ML 2ML 2 MG/ML VIAL IV STA (15:51)
[2020-06-09] MEDS ORDERED: CLINDAMYCIN PHOS 900MG/ 50ML 50 ML IV STA (15:51)
[2020-06-09] MEDS ORDERED: IOPAMIDOL 370 MG/ML 200 ML INFUS..BTL INJ ONE (15:52)
[2020-06-09] MEDS ORDERED: SODIUM CHLORIDE 0.9% 50ML 50 ML ONE (15:52)
[2020-06-09] MEDS ORDERED: MORPHINE SULFATE INJ 4 MG/ML INJ 1ML IV PRN (16:00)
[2020-06-09 18:52] VITALS: BP 115/57
== END 2020-06-09 18:57 | disposition home or self-care (01) ==
LOC: ER 14:45
DX: K04.7 Periapical abscess without sinus (principal); I10 Essential (primary) hypertension; E11.65 Type 2 diabetes mellitus with hyperglycemia; I25.2 Old myocardial infarction; Z95.5 Presence of coronary angioplasty implant and graft; Z85.44 Personal history of malignant neoplasm of other female genital organs
CPT/HCPCS: 36415; 70487; 80053; 85025; 99284; J2270; J2405; J7030; Q9967